=== PATIENT | female | born 1975 | race Caucasian/White ===

== ENCOUNTER 2023-12-16 17:25 | Inpatient (IN) | payer OTHER, SELFPAY ==
--- NOTE | 2023-12-16 18:12 | RAD REPORT ---
Procedure: Chest Single View HISTORY: Shortness of breath COMPARISON: 2018 FINDINGS: The lungs appear clear of acute infiltrate. No significant pleural effusion noted. The heart is normal size. IMPRESSION: No acute abnormality is displayed.
[2023-12-16] MEDS ORDERED: ALBUTEROL 2.5 MG/3 ML NEB SOL ONE ×2 (18:17→18:54)
[2023-12-16] MEDS ORDERED: MAGNESIUM SULFATE 1 gm IVPB 1 GM/100 ML BAG IV ONE (18:18)
[2023-12-16] MEDS ORDERED: IPRATROPIUM BROM 0.5MG/2.5ML ONE ×2 (18:18→18:54)
[2023-12-16] MEDS ORDERED: METHYLPREDNISOLONE 125 MG INJ ONE (18:18)
[2023-12-16] MEDS ORDERED: NA CHLORIDE 0.9% 3,000 ML ONE (18:19)
[2023-12-16 18:36] LABS: Absolute Monocytes 0.6 K/uL (0.1-1.3); Absolute Neutrophil 7.6 K/uL (1.8-8.0); Basophils % 0.4 % (0-1.3); Eosinophils % 0.4 % (0-4.4); Hematocrit 36.4 % (36.0-45.0); Hemoglobin 12.3 g/dL (12.0-15.0); Lymphocytes % 10.9 % (15.3-44.8); MCHC 33.7 g/dL (32.0-36.0); MCV 85.9 fL (80-100); MPV 6.6 fL (7.6-11.3); Monocytes % 6.1 % (3.3-12.3); Neutrophils % 82.2 % (41.7-73.7); Platelets 505 thou/uL (152-406); RBC Red Blood Cell Count 4.24 M/uL (3.86-4.86); Red Cell Distribution Width 17.3 % (12.1-15.2)
[2023-12-16 18:43] LABS: PT Prothrombin Time 11.7 SECONDS (9.4-12.5); PTT, Activated Partial Thromb 38.9 SECONDS (24.3-36.9); Protime INR 1.05
[2023-12-16 18:55] LABS: AST/SGOT 14 U/L (15-37); Albumin 3.5 g/dL (3.4-5.0); Albumin/Globulin Ratio 0.8 (1.1-1.8); Alkaline Phosphatase 59 U/L (45-117); Anion Gap 9.8 mEq/L (5.0-15.0); BUN Blood Urea Nitrogen 8 mg/dL (7-18); Bicarbonate 24 mEq/L (21-32); Bilirubin Total 0.3 mg/dL (0.2-1.0); Globulin 4.2 g/dL (2.3-3.5); Glomerular Filtration Rate 51 ml/min (=/>90); Glucose Level 115 mg/dL (74-106); Potassium 2.8 mEq/L (3.5-5.1); Protein, Total 7.7 g/dL (6.4-8.2); Sodium Level 135 mEq/L (136-145)
[2023-12-16 18:56] LABS: ALT/SGPT < 14 U/L (13-56)
[2023-12-16 19:21] LABS: SARS-CoV-2 Antigen CONTROL BLUE LINE VIS/BG OK; SARS-CoV-2 Antigen Rapid Res Negative (Negative)
--- NOTE | 2023-12-16 20:02 | ER ---
Nurse's Notes [facility] Name: Swati Garcia Age: 48 yrs Sex: Female : 1975 Arrival Date: 12/16/2023 Time: 17:25 Bed 23 Private MD: Diagnosis: Acute bronchitis, unspecified Presentation: 12/15 17:34 Chief complaint: Patient states: SOB for 3 days with wheezing. Coronavirus screen: ll1 Client denies travel out of the [place] in the last 14 days. cough unrelated to allergies, difficulty breathing, shortness of breath, Client presents with at least one sign or symptom that may indicate coronavirus-19. Standard/surgical mask placed on the client. Ebola Screen: Patient denies travel to an Ebola-affected area in the 21 days before illness onset. Initial Sepsis Screen: Does the patient meet any 2 criteria? No. Patient's initial sepsis screen is negative. Does the patient have a suspected source of infection? No. Patient's initial sepsis screen is negative. Risk Assessment: Do you want to hurt yourself or someone else? Patient reports no desire to harm self or others. Onset of symptoms was December 14, 2023. 17:34 Method Of Arrival: Ambulatory ll1 17:34 Acuity: POLLY 2 ll1 Triage Assessment: 17:43 General: Appears distressed, uncomfortable, ill, Behavior is calm, cooperative, ll1 appropriate for age. Pain: Denies pain. Respiratory: Reports shortness of breath cough that is Breath sounds with wheezes bilaterally. Onset: The symptoms/episode began/occurred the patient has moderate shortness of breath. Historical: - Allergies: 17:33 PENICILLINS; ll1 17:33 Promethazine; ll1 17:33 Iodine; ll1 17:33 NSAIDS; ll1 17:33 Rocephin; ll1 - PMHx: 17:33 Asthma; Hypertension; Lupus; ll1 - Immunization history:: Adult Immunizations up to date. - Social history:: Smoking status: Patient reports the use of cigarette tobacco products, smokes one pack cigarettes per day. Screenin:44 [facility] Fall Risk Assessment (Adult) History of falling in the last 3 months, jb4 including since admission No falls in past 3 months (0 pts) Confusion or Disorientation No (0 pts) Intoxicated or Sedated No (0 pts) Impaired Gait No (0 pts) Mobility Assist Device Used No (0 pt) Altered Elimination No (0 pt) Score/Fall Risk Level 0 - 2 = Low Risk Oriented to surroundings, Maintained a safe environment. Abuse screen: Denies threats or abuse. Nutritional screening: No deficits noted. Tuberculosis screening: No symptoms or risk factors identified. Assessment: 18:00 General: Appears in no apparent distress. uncomfortable, ill, obese, Behavior is calm, jb4 cooperative. Pain: Complains of pain in chest Pain does not radiate. Pain currently is 9 out of 10 on a pain scale. Neuro: Level of Consciousness is awake, alert, obeys commands, Oriented to person, place, time, situation. Cardiovascular: Patient's skin is warm and dry. Rhythm is sinus tachycardia. Respiratory: Airway is patent Respiratory effort is labored, pursed lip, Respiratory pattern is symmetrical, tachypnea Breath sounds with wheezes bilaterally. GI: No signs and/or symptoms were reported involving the gastrointestinal system. : No signs and/or symptoms were reported regarding the genitourinary system. EENT: No signs and/or symptoms were reported regarding the EENT system. Derm: Skin is intact, Skin is pink, warm \T\ dry. Musculoskeletal: Circulation, motion, and sensation intact. Range of motion: intact in all extremities. 19:00 Reassessment: Patient appears in no apparent distress at this time. No changes from jb4 previously documented assessment. Patient and/or family updated on plan of care and expected duration. Pain level reassessed. 20:00 Reassessment: Pt is now resting more comfortably in bed. Is no longer reporting jb4 wheezing or SOB while at rest. 21:00 Reassessment: Patient appears in no apparent distress at this time. No changes from jb4 previously documented assessment. Patient and/or family updated on plan of care and expected duration. Pain level reassessed. Pt able to ambulate to the restroom. Vital Signs: 17:34 BP 148 / 94; Pulse 129; Resp 30; Temp 98.2; Pulse Ox 98% ; Weight 102.06 kg; Height 5 ll1 ft. 1 in. ; Pain 9/10; 20:05 BP 132 / 78; Pulse 122; Resp 21; Pulse Ox 95% on R/A; jb4 20:46 BP 106 / 94; Pulse 120; Resp 23; Pulse Ox 99% on R/A; jb4 17:34 Body Mass Index 42.51 (102.06 kg, 154.94 cm) ll1 17:34 Pain Scale: Adult ll1 ED Course: 17:26 Patient arrived in ED. ra3 17:32 [facility] Potter [facility]C [facility] kb 17:32 Perry Abraham MD is Attending Physician. kb 17:35 Triage completed. ll1 17:35 Arm band placed on. ll1 17:45 Patient placed in an exam room, on a stretcher. ll1 17:57 Chest Single View XRAY In Process Unspecified. EDMS 18:06 Ricardo Martino, GERARDO is Primary Nurse. jb4 18:30 Inserted saline lock: 18 gauge in right antecubital area, using aseptic technique. jb4 20:01 Tonia Hinojosa MD is Hospitalizing Provider. kb 20:37 Strep Sent. jb4 21:44 Patient has correct armband on for positive identification. Bed in low position. Call jb4 light in reach. Side rails up X 1. Provided Education on: need for admit. 21:44 No provider procedures requiring assistance completed. Patient admitted, IV remains in jb4 place. Administered Medications: 18:22 Drug: Albuterol Inhalation 2.5 mg Inhalation once Route: Inhalation; jb4 18:22 Drug: Ipratropium Inhalation Aerosol 0.5 mg Inhalation once Route: Inhalation; jb4 18:27 Drug: NS 0.9% IV (30 ml/kg) 30 ml/kg IV at bolus once; Sepsis Protocol; to be given as jb4 a bolus over 90 minutes Route: IV; Rate: bolus; Site: left antecubital; 21:44 Follow up: Response: No adverse reaction; IV Status: Completed infusion; IV Intake: jb4 3000ml 18:27 Drug: MethylPrednisoLONE IVP 125 mg IVP once Route: IVP; Site: left antecubital; jb4 20:38 Follow up: Response: No adverse reaction; Marked relief of symptoms jb4 18:33 Drug: Magnesium Sulfate IVPB 1 grams IVPB once over 1 hrs Route: IVPB; Infused Over: 1 jb4 hrs; Site: left antecubital; 19:33 Follow up: Response: No adverse reaction; IV Status: Completed infusion; IV Intake: jb4 100ml 19:00 Drug: Albuterol Inhalation 2.5 mg Inhalation once Route: Inhalation; jb4 19:00 Drug: Ipratropium Inhalation Aerosol 0.5 mg Inhalation once Route: Inhalation; jb4 20:31 Not Given (Other Intervention Used): [id number] mg 100 ml IVPB once over 60 mins jb4 20:45 Drug: AZITHromycin IVPB 500 mg IVPB once over 1 hrs; (mix in 250 mL NS) Route: IVPB; jb4 Infused Over: 1 hrs; Site: left antecubital; 21:43 Follow up: IV Status: Infusion continued upon admission jb4 Intake: 19:33 IV: 100ml; Total: 100ml. jb4 21:44 IV: 3000ml; Total: 3100ml. jb4 Outcome: 20:01 Decision to Hospitalize by Provider. kb 21:45 Admitted to Med/surg accompanied by tech, via wheelchair, room 215, Report called to sanam Kramer RN 21:45 Condition: stable 21:45 Discharge instructions given to patient, Instructed on the need for admit, Demonstrated understanding of instructions, 21:45 Patient left the ED. jb4 Signatures: Dispatcher [employer] EDMS Gala Potter, SPORT INTERNSHIP-C SPORT INTERNSHIP-CkRicardo Zhao RN RN jb4 Adiel Dela Cruz, GERARDO RN ll1 Yanira Powell ra3 Corrections: (The following items were deleted from the chart) 17:36 17:34 Pulse 129bpm; Resp 30bpm; Pulse Ox 98%; Temp 98.2F; 102.06 kg; Height 5 ft. 1 ll1 in.; BMI: 42.5; Pain 9/10, Adult; ll1 20:39 19:38 Albuterol Inhalation 2.5 mg Inhalation jb4 jb4
--- NOTE | 2023-12-16 20:02 | EDPHYS ---
Physician Documentation [facility] Name: Swati Garcia Age: 48 yrs Sex: Female : 1975 Arrival Date: 12/16/2023 Time: 17:25 Bed 23 Private MD: ED Physician Perry Abraham HPI: 12/15 20:22 This 48 yrs old Female presents to ER via Ambulatory with complaints of Breathing kb Difficulty. 20:22 Pt is a 48 year old female who presents for cough, congestion, shortness of breath and kb fever that started 3 days ago. States symptoms have continued to progress despite otc medication. 1.5ppd smoker. Historical: - Allergies: 17:33 PENICILLINS; ll1 17:33 Promethazine; ll1 17:33 Iodine; ll1 17:33 NSAIDS; ll1 17:33 Rocephin; ll1 - PMHx: 17:33 Asthma; Hypertension; Lupus; ll1 - Immunization history:: Adult Immunizations up to date. - Social history:: Smoking status: Patient reports the use of cigarette tobacco products, smokes one pack cigarettes per day. ROS: 20:19 Constitutional: As per HPI kb Exam: 20:19 Constitutional: This is a well developed, well nourished patient who is awake, alert, kb and in no acute distress. Head/Face: Normocephalic, atraumatic. ENT: Moist Mucous membranes Abdomen/GI: Soft, non-tender. No distention Skin: Warm, dry with normal turgor. Normal color. MS/ Extremity: Pulses equal, no cyanosis. Neurovascular intact. Full, normal range of motion. Neuro: Awake and alert, GCS 15, oriented to person, place, time, and situation. 20:19 Cardiovascular: Rate: tachycardic, 20:19 ECG was reviewed by the Attending Physician. 20:19 Respiratory: mild respiratory distress is noted, Respirations: labored breathing, Breath sounds: wheezing: inspiratory expiratory that is moderate, is scattered, Vital Signs: 17:34 BP 148 / 94; Pulse 129; Resp 30; Temp 98.2; Pulse Ox 98% ; Weight 102.06 kg; Height 5 ll1 ft. 1 in. ; Pain 9/10; 20:05 BP 132 / 78; Pulse 122; Resp 21; Pulse Ox 95% on R/A; jb4 20:46 BP 106 / 94; Pulse 120; Resp 23; Pulse Ox 99% on R/A; jb4 17:34 Body Mass Index 42.51 (102.06 kg, 154.94 cm) ll1 17:34 Pain Scale: Adult ll1 MDM: 17:32 Medical Screening Exam initiated kb 20:20 Differential diagnosis: asthma, Bronchitis Chronic Obstructive Pulmonary Disease kb Pulmonary Embolism. Data reviewed: vital signs, nurses notes. Consideration of Admission/Observation Patient was admitted/placed on observation. Escalation of care including admission/observation considered. Management of patient was discussed with the following: Hospitalist: [facility] WORKER accepts pt for admission. Test considered but Not performed: CT: CT chest to rule out pe considered but pt is allergic to iodine. Counseling: I had a detailed discussion with the patient and/or guardian regarding the historical points, exam findings, and any diagnostic results supporting the discharge/admit diagnosis, lab results, radiology results, the need for further work-up and treatment in the hospital. 12/15 17:35 Order name: Blood Culture Adult (2) kb 12/15 17:35 Order name: CBC with Diff; Complete Time: 18:38 kb 12/15 17:35 Order name: CMP; Complete Time: 18:57 kb 12/15 17:35 Order name: Lactate w/ 2H reflex if indic.; Complete Time: 19:01 kb 12/15 17:35 Order name: Protime (+inr); Complete Time: 18:54 kb 12/15 17:35 Order name: Ptt, Activated; Complete Time: 18:54 kb 12/15 17:35 Order name: Flu; Complete Time: 19:25 kb 12/15 17:35 Order name: SARS-COV-2 Antigen Rapid; Complete Time: 19:25 kb 12/15 19:04 Order name: Glucose, Ancillary Testing; Complete Time: 19:04 EDMS 12/15 19:56 Order name: Strep kb 12/15 20:52 Order name: Throat Culture EDMS 12/15 20:59 Order name: Ghost Lactate-NO COLLECT Timer; Complete Time: 21:06 EDMS 12/15 21:30 Order name: Lactate w/ 2H reflex if indic. EDMS 12/15 21:30 Order name: Urinalysis w/ reflexes EDMS 12/15 21:30 Order name: CBC with Automated Diff EDMS 12/15 21:30 Order name: CBC with Automated Diff EDMS 12/15 21:30 Order name: Comprehensive Metabolic Panel EDMS 12/15 21:30 Order name: Comprehensive Metabolic Panel EDMS 12/15 21:30 Order name: Magnesium EDMS 12/15 21:30 Order name: Magnesium EDMS 12/15 17:35 Order name: Chest Single View XRAY; Complete Time: 18:31 kb 12/15 17:35 Order name: Accucheck; Complete Time: 19:10 kb 12/15 17:35 Order name: Cardiac monitoring; Complete Time: 19:10 kb 12/15 17:35 Order name: EKG - Nurse/Tech; Complete Time: 19:10 kb 12/15 17:35 Order name: IV Saline Lock - Large Bore; Complete Time: 19:10 kb 12/15 17:35 Order name: Labs collected and sent; Complete Time: 18:39 kb 12/15 17:35 Order name: O2 Per Protocol; Complete Time: 18:39 kb 12/15 17:35 Order name: O2 Sat Monitoring; Complete Time: 18:39 kb 12/15 17:35 Order name: Vital Signs; Complete Time: 18:38 kb 12/15 19:51 Order name: Vital Signs; Complete Time: 20:05 kb 12/15 21:06 Order name: Misc. Order: please draw repeat lactate; Complete Time: 21:43 kb EC:19 Rate is 120 beats/min. Rhythm is regular. QRS [place] is Normal. [place] interval is normal at kb 112 msec. QRS interval is normal at 84 msec. QT interval is prolonged at 613 msec. Administered Medications: 18:22 Drug: Albuterol Inhalation 2.5 mg Inhalation once Route: Inhalation; jb4 18:22 Drug: Ipratropium Inhalation Aerosol 0.5 mg Inhalation once Route: Inhalation; jb4 18:27 Drug: NS 0.9% IV (30 ml/kg) 30 ml/kg IV at bolus once; Sepsis Protocol; to be given as jb4 a bolus over 90 minutes Route: IV; Rate: bolus; Site: left antecubital; 21:44 Follow up: Response: No adverse reaction; IV Status: Completed infusion; IV Intake: jb4 3000ml 18:27 Drug: MethylPrednisoLONE IVP 125 mg IVP once Route: IVP; Site: left antecubital; jb4 20:38 Follow up: Response: No adverse reaction; Marked relief of symptoms jb4 18:33 Drug: Magnesium Sulfate IVPB 1 grams IVPB once over 1 hrs Route: IVPB; Infused Over: 1 jb4 hrs; Site: left antecubital; 19:33 Follow up: Response: No adverse reaction; IV Status: Completed infusion; IV Intake: jb4 100ml 19:00 Drug: Albuterol Inhalation 2.5 mg Inhalation once Route: Inhalation; jb4 19:00 Drug: Ipratropium Inhalation Aerosol 0.5 mg Inhalation once Route: Inhalation; jb4 20:31 Not Given (Other Intervention Used): [id number] mg 100 ml IVPB once over 60 mins jb4 20:45 Drug: AZITHromycin IVPB 500 mg IVPB once over 1 hrs; (mix in 250 mL NS) Route: IVPB; jb4 Infused Over: 1 hrs; Site: left antecubital; 21:43 Follow up: IV Status: Infusion continued upon admission jb4 Disposition Summary: 12/16/23 20:01 Hospitalization Ordered Notes: Hospitalization Status: Observation kb Provider: Tonia Hinojosa [facility] Condition: Stable kb Problem: new kb Symptoms: are unchanged kb Bed/Room Type: Standard Room Assignment: 215(12/16/23 20:23) rv1 Diagnosis - Acute bronchitis, unspecified kb Forms: - Medication Reconciliation Form kb - SBAR form kb - Leadership Thank You Letter kb Addendum: 12/20/2023 19:58 Co-signature as Attending Physician, Perry Abraham MD I reviewed the patient's care r t provided by the Advanced Practice Provider and agree with the diagnosis and treatment plan. Signatures: Dispatcher [employer] EDTN Gala Potter, BATCH AND FURNACE MANAGER-C BATCH AND FURNACE MANAGER-Ckb Ricardo Martino RN RN jb4 Adiel Dela Cruz RN RN ll1 Perry Abraham MD MD Claudette Haynes rv1 Corrections: (The following items were deleted from the chart) 12/15 17:36 17:36 BLOOD CULTURE*+BA.LAB.BRZ ordered. EDMS EDMS 17:36 17:36 CBC+H.LAB.BRZ ordered. EDMS EDMS 17:36 17:36 COMPREHENSIVE METABOLIC PANEL+C.LAB.BRZ ordered. EDMS EDMS 17:36 17:36 LACTATE+C.LAB.BRZ ordered. EDMS EDMS 17:36 17:36 PROTIME (+INR)+COAG.LAB.BRZ ordered. EDMS EDMS 17:36 17:36 PTT, ACTIVATED+COAG.LAB.BRZ ordered. EDMS EDMS 17:36 17:36 Influenza Screen (A \T\ B)+BA.LAB.BRZ ordered. EDMS EDMS 17:36 17:36 SARS-COV-2 Antigen Rapid+I.LAB.BRZ ordered. EDMS EDMS 17:36 17:36 Chest Single View+RAD.RAD.BRZ ordered. EDMS EDMS 20:23 20:01 kb rv1
[2023-12-16] MEDS ORDERED: Levofloxacin500mg IV 0 MG/0 ML BAG IV ONE (20:26)
[2023-12-16] MEDS ORDERED: NA CHLORIDE 0.9% 250 ML ONE (20:29)
[2023-12-16] MEDS ORDERED: AZITHROMYCIN 500 MG INJ IVPB ONE (20:29)
--- NOTE | 2023-12-16 21:22 | P.HP ---
Certification for Inpatient Patient admitted to: Inpatient With expected LOS: <2 Midnights Practitioner: I am a practitioner with admitting privileges, knowledge of patient current condition, hospital course, and medical plan of care. Services: Services provided to patient in accordance with Admission requirements found in Title 42 Section 412.3 of the Code of Federal Regulations Patient History Date of Service: 12/17/23 Reason for admission: Asthma exacerbation History of Present Illness: 48-year-old female with a past medical history of lupus, asthma, hypertension, hyperlipidemia, presents to the emergency room with shortness of breath. He reports shortness of breath is worse with exertion, worse while laying flat. She reports symptoms started 3 days ago is progressively getting worse. She reports smoking a pack and a half a day. She denies chest pain, abdominal pain, dizziness, she denies previously being intubated for acute bronchitis, asthma exacerbation. Plan to admit for asthma exacerbation, acute hypoxic respiratory failure secondary to asthma exacerbation, ER evaluation Rate is 120 beats/min. Rhythm is regular. QRS [place] is Normal. [place] interval is normal at 112 msec. QRS interval is normal at 84 msec. QT interval is prolonged at 613 msec. Laboratory evaluation, lactic acidosis 3.0, no leukocytosis, left shift 82.2, thrombocytosis, platelets 505, hypokalemia 2.8, acute kidney injury, creatinine 1.25 GFR 51, SARS Cov, No acute abnormality is displayed. Allergies iodine Allergy (Severe, Unverified 12/16/23 22:17) Hives/Rash ceftriaxone [From Rocephin] Allergy (Intermediate, Verified 12/16/23 22:17) Nausea/Vomiting promethazine [From Phenergan] Allergy (Intermediate, Unverified 12/16/23 22:17) Hives/Rash Penicillins Allergy (Unknown, Unverified 12/16/23 22:17) Unknown NSAIDS Allergy (Intermediate, Uncoded 12/16/23 22:17) Itching/Hives/Rash Home Medications: Cyclobenzaprine [Flexeril] 10 mg PO TIDP PRN 12/16/23 Furosemide [Lasix] 20 mg PO DAILYPRN PRN 12/16/23 Gabapentin [Gabapentin ER] 600 mg PO TIDP PRN 12/16/23 Losartan Potassium [Cozaar] 50 mg PO DAILY 12/16/23 Quetiapine Fumarate [Seroquel] 400 mg PO BEDTIME 12/16/23 Trazodone [Desyrel] 300 mg PO BEDTIME 12/16/23 hydroCHLOROthiazide [Hydrodiuril] 25 mg PO DAILY 12/16/23 - Past Medical/Surgical History -: Asthma -: Hypertension -: Hyperlipidemia -: Appendectomy -: Tonsillectomy - Social History Smoking Status: Current some day smoker Smoking therapy provided: Yes CD- Drugs: No Caffeine use: No Place of Residence: Home Review of Systems 10-point ROS is otherwise unremarkable General: As per HPI Physical Examination - Physical Exam General: Alert, Oriented x3, Mild distress, Obese HEENT: Atraumatic, Normocephalic Neck: Supple, JVD not distended Respiratory: Expiratory wheezes, Inspiratory wheezes Cardiovascular: Normal pulses, Normal S1 S2, Other (Sinus tachycardia) Capillary refill: <2 Seconds Gastrointestinal: Normal bowel sounds, Soft and benign, Other (Obese) Musculoskeletal: No swelling, No contractures Integumentary: No breakdown, No significant lesion Neurological: Normal speech, Normal strength at 5/5 x4 extr, Sensation intact - Studies Laboratory Data (last 24 hrs) 12/16/23 12/16/23 12/16/23 18:27 18:27 18:27 WBC 9.30 Hgb 12.3 Hct 36.4 Plt Count 505 H PT 11.7 INR 1.05 APTT 38.9 H Sodium 135 L Potassium 2.8 L BUN 8 Creatinine 1.28 H Glucose 115 H Total Bilirubin 0.3 AST 14 L ALT < 14 Alkaline Phosphatase 59 Microbiology Data (last 24 hrs): 12/16/23 20:30 Throat Group A Streptococcus Rapid Screen - Final 12/16/23 18:45 Nasopharnyx Influenza Type A Antigen Screen - Final 12/16/23 18:45 Nasopharnyx Influenza Type B Antigen Screen - Final Assessment and Plan - Plan Assessment plan Asthma exacerbation Chronic bronchitis Tobacco use Pulmonary consult Steroids, nebs, antacids, O2 keep sats greater than 90% ER evaluation Rate is 120 beats/min. Rhythm is regular. QRS [place] is Normal. MT interval is normal at 112 msec. QRS interval is normal at 84 msec. QT interval is prolonged at 613 msec. Laboratory evaluation, lactic acidosis 3.0, no leukocytosis, left shift 82.2, thrombocytosis, platelets 505, hypokalemia 2.8, acute kidney injury, creatinine 1.25 GFR 51, chest x-ray, No acute abnormality is displayed. Educated on tobacco cessation IV fluids, trend lactic, trend WBC SIRS Sinus tachycardia, tachypnea, lactic acidosis Likely secondary from asthma exacerbation, IV fluids, IV antibiotic BNP in the a.m. Trend lactic, WBC EKG Rate is 120 beats/min. Rhythm is regular. QRS [place] is Normal. MT interval is normal at 112 msec. QRS interval is normal at 84 msec. QT interval is prolonged at 613 msec. Hypokalemia Trend electrolytes replace as needed Acute kidney injury unknown based Gentle IV fluids Thrombocytosis Lovenox lupus hypertension hyperlipidemia Resume appropriate home meds Full code DVT Lovenox Diet regular Disposition Home independent prior Discharge Plan: Home - Advance Directives Does patient have a Living Will: No Does patient have a Durable POA for Healthcare: No - Code Status/Comfort Care Code Status: Full Code Critical Care: No Time Spent Managing Pts Care (In Minutes): 55
[2023-12-16] MEDS ORDERED: ALPRAZOLAM 0.25 MG TABLET PO PRN (21:23)
[2023-12-16 21:55] VITALS: BMI 39.8
[2023-12-16] MEDS: TRAZODONE 150 MG TAB PO SCH (23:53)
[2023-12-17] MEDS: QUETIAPINE 100MG TAB PO SCH (00:41)
[2023-12-17] MEDS: ACETAMINOPHEN 500 MG TAB PO PRN (00:41)
[2023-12-17] MEDS: NICOTINE 21 MG/PAT TD SCH (00:42)
[2023-12-17] MEDS: METHYLPREDNISOLONE 125 MG INJ IV SCH (00:42)
[2023-12-17] MEDS: ALBUTEROL 2.5 MG/3 ML NEB SOL NEB PRN (01:29)
[2023-12-17] MEDS: IPRATROPIUM BROM 0.5MG/2.5ML NEB PRN (01:29)
[2023-12-17 05:23] LABS: Absolute Lymphocytes (CBC) 0.7 K/uL (0.7-4.9); Absolute Monocytes 0.1 K/uL (0.1-1.3); Absolute Neutrophil 7.8 K/uL (1.8-8.0); Basophils % 0.1 % (0-1.3); Hematocrit 33.7 % (36.0-45.0); Hemoglobin 11.1 g/dL (12.0-15.0); Lymphocytes % 8.4 % (15.3-44.8); MCH 28.3 pg (27.0-35.0); MCHC 32.9 g/dL (32.0-36.0); MCV 86.2 fL (80-100); MPV 6.5 fL (7.6-11.3); Monocytes % 1.7 % (3.3-12.3); Neutrophils % 89.8 % (41.7-73.7); Platelets 442 thou/uL (152-406); RBC Red Blood Cell Count 3.91 M/uL (3.86-4.86); Red Cell Distribution Width 17.3 % (12.1-15.2)
[2023-12-17] MEDS: KCL 20 MEQ/100 mL IVPB 20 MEQ/100 ML BAG IV SCH (05:48)
[2023-12-17] MEDS: NA CHLORIDE 0.9% 500 ML ONE (05:48)
[2023-12-17 05:54] LABS: AST/SGOT 14 U/L (15-37); Albumin/Globulin Ratio 0.8 (1.1-1.8); Alkaline Phosphatase 51 U/L (45-117); BUN Blood Urea Nitrogen 6 mg/dL (7-18); Bicarbonate 23 mEq/L (21-32); Bilirubin Total 0.2 mg/dL (0.2-1.0); Globulin 3.7 g/dL (2.3-3.5); Glomerular Filtration Rate 60 ml/min (=/>90); Glucose Level 224 mg/dL (74-106); Magnesium 2.3 mg/dL (1.6-2.4); NT PRO-BNP 479 pg/mL (<125); Protein, Total 6.7 g/dL (6.4-8.2); Sodium Level 139 mEq/L (136-145)
[2023-12-17 05:55] LABS: ALT/SGPT < 14 U/L (13-56)
[2023-12-17] MEDS: CALCIUM CARBONATE CHEW 500MG TAB PO PRN (05:56)
[2023-12-17] MEDS: BENZONATATE 100 MG CAP PO PRN (05:57)
[2023-12-17] MEDS: ARFORMOTEROL TARTRATE 15 MCG/2 ML VIAL.NEB NEB SCH (07:53)
[2023-12-17] MEDS: POTASSIUM 25 MEQ EFFERV TAB PO SCH (08:06)
[2023-12-17] MEDS: ENOXAPARIN 40 MG/0.4 ML SQ SCH (08:07)
[2023-12-17 08:32] VITALS: O2SAT 96
[2023-12-17] MEDS ORDERED: AZITHROMYCIN IV 500 MG in NA CHLORIDE 0.9% 250 ML IVPB SCH (09:00)
[2023-12-17 09:34] LABS: Specific Gravity 1.008 (1.005-1.030); Sqamous Epithelial <5 /HPF (None Seen); Urine Bacteria None Seen /HPF (<20); Urine Bilirubin NEGATIVE (Negative); Urine Blood 1+ (Negative); Urine Clarity Clear (Clear); Urine Color Colorless (Yellow); Urine Culture Reflex Order NOT NEEDED; Urine Glucose 3+ (Negative); Urine Ketones NEGATIVE (Negative); Urine Microscopic Reflex YN ORDER UMIC; Urine Nitrite NEGATIVE (Negative); Urine Protein NEGATIVE (Negative); Urine RBC <5 /HPF (None Seen); Urine Urobilinogen Normal (Normal); Urine WBC <5 /HPF (<5); Urine pH 6.5 (5.0-7.0)
[2023-12-17 09:52] LABS: Blood Morphology Comment NOT SEEN (NOT SEEN); Platelet Estimate ADEQ; White Blood Cell Scan OK (OK)
[2023-12-17] MEDS: Levofloxacin 750mg IV 750 MG/150 ML BAG IV SCH (09:53)
[2023-12-17] MEDS: FLU (Fluarix Triv) TS24-25(6MOS UP)/PF 45 MCG/0.5 ML Syringe IM ONE (10:43)
[2023-12-17] MEDS: PANTOPRAZOLE 40MG TABLET PO ONE (11:39)
--- NOTE | 2023-12-17 11:48 | P.CNS ---
Date of Consult: 12/17/23 Reason for Consult: COPD/asthma exacerbation Chief Complaint: Asthma exacerbation History of Present Illness: Is 48 years of age says she has had a history of asthma since a kid heavy smoker 1-1/2 packs a day became sick 3 days ago planing of worse cough congestion productive phlegm admitted to the hospital she only takes albuterol at home use any long-acting bronchodilators patient states that steroids upset her stomach and she is okay if she takes a Pepcid with it denies any swelling lower extremity edema Allergies iodine Allergy (Severe, Verified 12/17/23 08:06) Hives/Rash ceftriaxone [From Rocephin] Allergy (Intermediate, Verified 12/16/23 22:17) Nausea/Vomiting promethazine [From Phenergan] Allergy (Intermediate, Verified 12/17/23 08:06) Hives/Rash Penicillins Allergy (Unknown, Verified 12/17/23 08:06) Unknown NSAIDS Allergy (Intermediate, Uncoded 12/16/23 22:17) Itching/Hives/Rash Home Medications: Cyclobenzaprine [Flexeril] 10 mg PO TIDP PRN 12/16/23 Furosemide [Lasix] 20 mg PO DAILYPRN PRN 12/16/23 Gabapentin [Gabapentin ER] 600 mg PO TIDP PRN 12/16/23 Losartan Potassium [Cozaar] 50 mg PO DAILY 12/16/23 Quetiapine Fumarate [Seroquel] 400 mg PO BEDTIME 12/16/23 Trazodone [Desyrel] 300 mg PO BEDTIME 12/16/23 hydroCHLOROthiazide [Hydrodiuril] 25 mg PO DAILY 12/16/23 - Past Medical/Surgical History Diabetic: No -: Asthma -: Hypertension -: Hyperlipidemia -: bipolar -: urinary retention -: Appendectomy -: Tonsillectomy -: - Social History Smoking Status: Current every day smoker Alcohol use: No CD- Drugs: No Caffeine use: No Place of Residence: Home Review of Systems 10-point ROS is otherwise unremarkable General: Weakness Respiratory: Cough, Shortness of Breath Physical Examination Temp Pulse Resp BP Pulse Ox 97.6 F 106 H 16 130/72 95 12/17/23 08:00 12/17/23 08:00 12/17/23 08:00 12/17/23 08:00 12/17/23 08:00 General: Alert, Oriented x3, Mild distress Neck: Supple Respiratory: Expiratory wheezes Cardiovascular: No edema, Regular rate/rhythm, Normal S1 S2 Gastrointestinal: Normal bowel sounds, Soft and benign Laboratory Data (last 24 hrs) 12/16/23 12/16/23 12/16/23 18:27 18:27 18:27 WBC 9.30 Hgb 12.3 Hct 36.4 Plt Count 505 H PT 11.7 INR 1.05 APTT 38.9 H Sodium 135 L Potassium 2.8 L BUN 8 Creatinine 1.28 H Glucose 115 H Total Bilirubin 0.3 AST 14 L ALT < 14 Alkaline Phosphatase 59 - Problems (1) COPD exacerbation Current Visit: Yes Status: Acute Plan: Patient is 48 years of age heavy smoker history of obstructive airways disease since childhood with worsening dyspnea cough congestion to be intolerant to steroids causes her stomach upset x-ray is clear labs chemistries all reviewed no evidence of an infection to discharge home with low-dose prednisone Pepcid and long-acting bronchodilator to follow-up with me and do an outpatient pulmonary function test to continue use using Dulera at home again smoking
--- NOTE | 2023-12-17 12:00 | P.PN ---
Date of Service: 12/17/23 Subjective: feels some improvement compared to yesterday still wheezing quite a bit, frequent coughing dyspnea having heartburn ROS: 10 point ROS as noted above, otherwise negative Physical Exam: GEN: Alert, NAD, restless HEENT: Normal conjunctiva, sclera anicteric CV: Regular rate and rhythm with itnermittent sinus tachycardia, no edema Pulm: diminished breath sounds bilaterally with exppiratory wheezing ABD: soft, nontender, nondistended Integumentary: No rashes Neuro: Normal speech, normal affect Problem List: Acute on chronic COPD exacerbation Hx Asthma / tobacco use Lactic acidosis BR[place] Hx lupus Hypertension Hyperlipidemia Acute on chronic COPD exacerbation Hx Asthma / tobacco use Lactic acidosis on admission, presents with worsening shortness of breath for ~3 days. Feels breathing is worse with exertion and laying flat Smokes 1.5 packs/day. Only uses albuterol at home. CXR (12/15): no acute findings. suspect COPD exacerbation Lactic acid elevated. No evidence of infection. do not suspect sepsis lactic acidosis likely secondary to copd exacerbation /hypoxia, and possibly from albuterol nebs Dr. Ruvalcaba, pulm consulted continue oral prednisone reports upset stomach after taking steroids; tolerable after taking pepcid continue duonebs, antitussives, brovana nicoderm patch added BR[place] creatinine 1.28 on admission s/p IVF overnight continue to monitor renal function monitor and replete electrolytes as needed improving Hx lupus Hypertension Hyperlipidemia confirm home meds, restart as appropriate VTE: Lovenox Code: Full Dispo: Home, ~1 day Time Spent Managing Pts Care (In Minutes): 41
[2023-12-17] MEDS: AZITHROMYCIN 250 MG TAB PO SCH (12:43)
--- NOTE | 2023-12-17 12:50 | EKG ---
Test Date: 2023-12-16 Test Time: 19:00:51 Photographic Spotter: DAYO MEASUREMENT RESULTS: Intervals: Rate: 120 [place]: 112 QRSD: 84 QT: 434 QTc: 613 [place]: P: [place]: 112 QRS: 78 T: 73 INTERPRETIVE STATEMENTS: Sinus tachycardia Low voltage QRS Cannot rule out Anterior infarct, age undetermined Prolonged QT Abnormal ECG No previous ECG available for comparison Electronically Signed On 12-17-23 12:48:55 CDT by Mika Orourke
[2023-12-17] MEDS: PANTOPRAZOLE 40MG TABLET PO SCH (15:20)
[2023-12-17] MEDS: METOCLOPRAMIDE 10 MG/2mL INJ IV SCH (16:20)
[2023-12-17] MEDS: DULERA 200/5 (MOMETASONE/FORMOTEROL) INHALER IH SCH (20:13)
[2023-12-17] MEDS: predniSONE 20 MG TAB PO SCH (20:15)
[2023-12-17] MEDS ORDERED: predniSONE 20 MG TAB PO SCH (21:00)
[2023-12-18 06:09] LABS: Absolute Lymphocytes (CBC) 1.7 K/uL (0.7-4.9); Absolute Monocytes 1.1 K/uL (0.1-1.3); Absolute Neutrophil 11.3 K/uL (1.8-8.0); Hematocrit 32.5 % (36.0-45.0); Hemoglobin 10.6 g/dL (12.0-15.0); Lymphocytes % 11.9 % (15.3-44.8); MCH 28.5 pg (27.0-35.0); MCHC 32.7 g/dL (32.0-36.0); MCV 87.2 fL (80-100); MPV 6.8 fL (7.6-11.3); Monocytes % 7.8 % (3.3-12.3); Neutrophils % 80.3 % (41.7-73.7); Platelets 423 thou/uL (152-406); RBC Red Blood Cell Count 3.73 M/uL (3.86-4.86); Red Cell Distribution Width 17.8 % (12.1-15.2)
[2023-12-18 06:32] LABS: Anion Gap 9.7 mEq/L (5.0-15.0); Magnesium 2.3 mg/dL (1.6-2.4); Potassium 3.7 mEq/L (3.5-5.1)
--- NOTE | 2023-12-18 08:41 | P.DS ---
Admission Date: 12/16/23 Discharge Date: 12/18/23 Disposition: ROUTINE DISCHARGE Discharge Condition: GOOD Reason for Admission: Asthma exacerbation Consultations: Pulmonology - Dr. Ruvalcaba Brief History of Present Illness: 48yo F, PMH: lupus, asthma, hypertension, hyperlipidemia Patient presents to the emergency room with shortness of breath. He reports shortness of breath is worse with exertion, worse while laying flat. She reports symptoms started 3 days ago is progressively getting worse. She reports smoking a pack and a half a day. She denies chest pain, abdominal pain, dizziness, she denies previously being intubated for acute bronchitis, asthma exacerbation. Plan to admit for asthma exacerbation, acute hypoxic respiratory failure secondary to asthma exacerbation, ER evaluation Rate is 120 beats/min. Rhythm is regular. QRS [place] is Normal. [place] interval is normal at 112 msec. QRS interval is normal at 84 msec. QT interval is prolonged at 613 msec. Laboratory evaluation, lactic acidosis 3.0, no leukocytosis, left shift 82.2, thrombocytosis, platelets 505, hypokalemia 2.8, acute kidney injury, creatinine 1.25 GFR 51, SARS Cov, No acute abnormality is displayed. Hospital Course: Problem List: Acute on chronic COPD exacerbation Hx Asthma / tobacco use Lactic acidosis secondary to COPD / hypoxia [place], resolved Hx lupus Hypertension Hyperlipidemia Physician discharge instructions: Patient presented with worsening shortness of breath secondary to acute on chronic COPD exacerbation. Chest xray on admission was negative for any acute findings. Pulm was consulted. Dr. Ruvalcaba felt this episode to be most consistent with acute COPD exacerbation. Patient was given steroids in addition to nebs, antitussives, and had improvement of her symptoms. Lactic acid was noted to be elevated this hospitalization ranging in the 3s. There was no evidence of infection. Discussed with Dr. Ruvalcaba and likely secondary to her COPD exacerbation and nebulizers. Lacid acid improved to 2.9 on day of discharge. She was empirically covered for possible infection while hospitalized and is to complete 5 more days of Augmentin on discharge. Patient reported continued daily improvement. On day of discharge, she reported feeling much better and ready to go home. On exam, she breathing comfortably on room air with minimal wheeze, and was deemed stable for discharge. Recommend following up with pulmonology in next week for further management and scheduling for outpatient pulmonary function testing. Medications: Augmentin for 5 more days Prednisone for 4 more days Dulera inhaler Albuterol nebs prescription for nebulizer sent. Pantoprazole continue other home medications not listed as previously prescribed. Follow up: PCP 3-5 days Pulmonology in ~1-2 weeks Please call to schedule / confirm appointments Physical Exam: GEN: Alert, NAD, restless HEENT: Normal conjunctiva, sclera anicteric CV: Regular rate and rhythm, no edema Pulm:adequate breath sounds bilaterally with mild expiratory wheezing ABD: soft, nontender, nondistended Integumentary: No rashes Neuro: Normal speech, normal affect Vital Signs/Physical Exam: Temp Pulse Resp BP Pulse Ox 98.1 F 93 H 18 136/62 95 12/18/23 04:00 12/18/23 04:00 12/18/23 04:00 12/18/23 04:00 12/18/23 04:00 Laboratory Data at Discharge: WBC 14.00 thou/uL (4.3-10.9) H 12/18/23 05:49 Hgb 10.6 g/dL (12.0-15.0) L 12/18/23 05:49 Hct 32.5 % (36.0-45.0) L 12/18/23 05:49 Plt Count 423 thou/uL (152-406) H 12/18/23 05:49 PT 11.7 SECONDS (9.4-12.5) 12/16/23 18:27 INR 1.05 12/16/23 18:27 APTT 38.9 SECONDS (24.3-36.9) H 12/16/23 18:27 Sodium 140 mEq/L (136-145) 12/18/23 05:49 Potassium 3.7 mEq/L (3.5-5.1) D 12/18/23 05:49 BUN 12 mg/dL (7-18) 12/18/23 05:49 Creatinine 1.13 mg/dL (0.55-1.02) H 12/18/23 05:49 Glucose 193 mg/dL (74-106) H 12/18/23 05:49 Magnesium 2.3 mg/dL (1.6-2.4) 12/18/23 05:49 Total Bilirubin 0.2 mg/dL (0.2-1.0) 12/17/23 05:14 AST 14 U/L (15-37) L 12/17/23 05:14 ALT < 14 U/L (13-56) 12/17/23 05:14 Alkaline Phosphatase 51 U/L (45-117) 12/17/23 05:14 Home Medications: Cyclobenzaprine [Flexeril*] 10 mg PO TIDP PRN 12/16/23 Furosemide [Lasix*] 20 mg PO DAILYPRN PRN 12/16/23 Gabapentin [Gabapentin ER] 600 mg PO TIDP PRN 12/16/23 Losartan Potassium [Cozaar*] 50 mg PO DAILY 12/16/23 Quetiapine Fumarate [Seroquel] 400 mg PO BEDTIME 12/16/23 Trazodone [Desyrel*] 300 mg PO BEDTIME 12/16/23 hydroCHLOROthiazide [Hydrodiuril*] 25 mg PO DAILY 12/16/23 Albuterol Neb [Proventil 0.083% Neb Soln] 2.5 mg NEB Q6HP PRN 30 Days #90 amp 12/18/23 Amox/Clavulanate [Augmentin 875-125 Tab] 875 mg PO BID 5 Days #10 tab 12/18/23 Mometasone/Formoterol [Dulera 200 Mcg/5 Mcg Inhaler] 2 puff IH BID inhaler 12/18/23 Nebulizer [Truneb Nebulizer] 1 each SEECOM #1 ea 12/18/23 Pantoprazole [Protonix Tab*] 40 mg PO AC 30 Days #30 tab 12/18/23 predniSONE [Prednisone*] 20 mg PO BIDL 4 Days #8 tab 12/18/23 New Medications: Albuterol Neb [Proventil 0.083% Neb Soln] 2.5 mg NEB Q6HP PRN 30 Days #90 amp PRN Reason: Shortness Of Breath Amox/Clavulanate [Augmentin 875-125 Tab] 875 mg PO BID 5 Days #10 tab predniSONE [Prednisone*] 20 mg PO BIDL 4 Days #8 tab Pantoprazole [Protonix Tab*] 40 mg PO AC 30 Days #30 tab Nebulizer [Truneb Nebulizer] 1 each SEECOM #1 ea Physician Discharge Instructions: Physician discharge instructions: Patient presented with worsening shortness of breath secondary to acute on chronic COPD exacerbation. Chest xray on admission was negative for any acute findings. Pulm was consulted. Dr. Ruvalcaba felt this episode to be most consistent with acute COPD exacerbation. Patient was given steroids in addition to nebs, antitussives, and had improvement of her symptoms. Lactic acid was noted to be elevated this hospitalization ranging in the 3s. There was no evidence of infection. Discussed with Dr. Ruvalcaba and likely secondary to her COPD exacerbation and nebulizers. She was empirically covered for possible infection while hospitalized and is to complete 5 more days of Augmentin on discharge. Patient reported continued daily improvement. On day of discharge, she reported feeling much better and ready to go home. On exam, she breathing comfortably on room air with minimal wheeze, and was deemed stable for discharge. Recommend following up with pulmonology in next week for further management and scheduling for outpatient pulmonary function testing. Medications: Augmentin for 5 more days Prednisone for 4 more days Dulera inhaler Albuterol nebs prescription for nebulizer sent. Pantoprazole continue other home medications not listed as previously prescribed. Follow up: PCP 3-5 days Pulmonology in ~1-2 weeks Please call to schedule / confirm appointments Followup: Issac Ruvalcaba MD [ACTIVE - CAN ADMIT] - 1-2 Weeks OOT,OOT [Primary Care Provider] - Time spent managing pt's care (in minutes): 45
[2023-12-18 08:49] VITALS: BP 106/75; TEMP 97.8
[2023-12-18] MEDS: POTASSIUM CL SA 10 MEQ TAB PO ONE (08:57)
[2023-12-18] MEDS ORDERED: Levofloxacin 750mg IV 750 MG/150 ML BAG IV SCH (10:00)
== END 2023-12-18 10:11 | disposition home or self-care (01) | DRG 190 ==
LOC: ER 17:25 → 2ND 21:22
PROVIDERS: ADMIT Hospitalist; ATTEND Hospitalist
DX: J44.1 Chronic obstructive pulmonary disease with (acute) exacerbation (principal); J96.01 Acute respiratory failure with hypoxia; E87.20 Acidosis, unspecified; N17.9 Acute kidney failure, unspecified; Z68.41 Body mass index [BMI] 40.0-44.9, adult; R65.10 Systemic inflammatory response syndrome (SIRS) of non-infectious origin without acute organ dysfunction; E66.9 Obesity, unspecified; E87.6 Hypokalemia; I10 Essential (primary) hypertension; E78.5 Hyperlipidemia, unspecified; M32.9 Systemic lupus erythematosus, unspecified; D69.6 Thrombocytopenia, unspecified; F17.210 Nicotine dependence, cigarettes, uncomplicated; Z88.0 Allergy status to penicillin; Z88.1 Allergy status to other antibiotic agents; Z11.52 Encounter for screening for COVID-19; Z90.49 Acquired absence of other specified parts of digestive tract; Z79.899 Other long term (current) drug therapy
CPT/HCPCS: 36415; 71045; 80048; 80053; 81001; 82947; 83605; 83735; 83880; 85025; 85610; 85730; 87040; 87070; 87081; 87804; 87811; 93005; 94640; 94760; 96365; 96367; 96375; 99285; J1650; J2765; J2919; J3475; J3480; J3535; J7030; J7040; J7050; J7512; J7605; J7613; J7644

== ENCOUNTER 2024-04-05 07:34 | Emergency (ER) | payer OTHER ==
[2024-04-05] MEDS ORDERED: NA CHLORIDE 0.9% 1,000 ML ONE (07:51)
[2024-04-05] MEDS ORDERED: FAMOTIDINE 20 MG/2 ML VIAL IV ONE (07:51)
[2024-04-05 08:05] LABS: Absolute Lymphocytes (CBC) 0.9 K/uL (0.7-4.9); Absolute Monocytes 0.3 K/uL (0.1-1.3); Absolute Neutrophil 8.1 K/uL (1.8-8.0); Basophils % 0.3 % (0-1.3); Eosinophils % 0.1 % (0-4.4); Hematocrit 39.3 % (36.0-45.0); Lymphocytes % 9.4 % (15.3-44.8); MCH 28.2 pg (27.0-35.0); MCHC 33.1 g/dL (32.0-36.0); MCV 85.3 fL (80-100); MPV 6.5 fL (7.6-11.3); Monocytes % 3.3 % (3.3-12.3); Neutrophils % 86.9 % (41.7-73.7); Platelets 506 thou/uL (152-406); RBC Red Blood Cell Count 4.61 M/uL (3.86-4.86); Red Cell Distribution Width 17.3 % (12.1-15.2)
[2024-04-05 08:25] LABS: Albumin 3.5 g/dL (3.4-5.0); Albumin/Globulin Ratio 0.8 (1.1-1.8); Alkaline Phosphatase 59 U/L (45-117); Anion Gap 9.5 mEq/L (5.0-15.0); BUN Blood Urea Nitrogen 11 mg/dL (7-18); Bicarbonate 26 mEq/L (21-32); Bilirubin Total 0.3 mg/dL (0.2-1.0); Globulin 4.2 g/dL (2.3-3.5); Glomerular Filtration Rate 58 ml/min (=/>90); Glucose Level 138 mg/dL (74-106); Lipase 21 U/L (13-75); Protein, Total 7.7 g/dL (6.4-8.2); Sodium Level 136 mEq/L (136-145)
[2024-04-05 08:30] LABS: ALT/SGPT < 14 U/L (13-56); AST/SGOT 15 U/L (15-37); Potassium 4.5 mEq/L (3.5-5.1)
[2024-04-05 08:40] LABS: Blood Morphology Comment NOT SEEN (NOT SEEN); White Blood Cell Scan OK (OK)
[2024-04-05 08:41] LABS: Platelet Estimate INCR
[2024-04-05 09:55] LABS: Specific Gravity 1.008 (1.005-1.030); Sqamous Epithelial <5 /HPF (None Seen); Urine Bacteria <20 /HPF (<20); Urine Bilirubin NEGATIVE (Negative); Urine Blood Trace (Negative); Urine Clarity Extremely Turbid (Clear); Urine Color Light-Yellow (Yellow); Urine Culture Reflex Order NOT NEEDED; Urine Glucose NEGATIVE (Negative); Urine Ketones NEGATIVE (Negative); Urine Microscopic Reflex YN ORDER UMIC; Urine Mucus Slight /HPF (None Seen); Urine Nitrite NEGATIVE (Negative); Urine Protein NEGATIVE (Negative); Urine RBC <5 /HPF (None Seen); Urine Urobilinogen Normal (Normal); Urine WBC <5 /HPF (<5); Urine pH 6.5 (5.0-7.0)
[2024-04-05 09:58] LABS: Barbiturates NEGATIVE (NEGATIVE); Benzodiazepines NEGATIVE (NEGATIVE); Cocaine NEGATIVE (NEGATIVE); METHAMPHETAM NEGATIVE (NEGATIVE); Methadone NEGATIVE (NEGATIVE); Opiates NEGATIVE (NEGATIVE); Phencyclidine NEGATIVE (NEGATIVE); THC Cannibis NEGATIVE (NEGATIVE)
--- NOTE | 2024-04-05 09:59 | EDPHYS ---
Physician Documentation [facility] Name: Swati Garcia Age: 48 yrs Sex: Female : 1975 Arrival Date: 04/05/2024 Time: 07:34 Bed 8 Private MD: ED Physician Aniceto Melgoza HPI: 04/05 08:11 This 48 yrs old Female presents to ER via EMS with complaints of Drug Abuse. rn 08:11 The patient presents to the emergency department with a possible overdose. Context: rn Method: the patient has a confirmed or suspected ingestion. Severity of symptoms: At their worst the symptoms were moderate in the emergency department the symptoms have improved. The patient has not experienced similar symptoms in the past. Patient reports her and jessica took a THC gummy yesterday, both of them began to feel bad shortly afterwards and through the night. Called 911 because they were not feeling well, patient reports she started throwing up. Patient reports mild abdominal cramping. No trauma. Patient states felt okay prior to taking gummy.. Historical: - Allergies: 07:44 Iodine; ss 07:44 NSAIDS; ss 07:44 PENICILLINS; ss 07:44 Phenergan; ss 07:44 Rocephin; ss - PMHx: 07:44 Asthma; Hypertension; Lupus; ss - Immunization history:: Adult Immunizations unknown. - Infectious Disease History:: Denies. - Family history:: not pertinent. - Social history:: Smoking status: unknown Patient uses street drugs, marijuana. - Hospitalizations: : No recent hospitalization is reported. ROS: 08:11 Constitutional: Negative for fever, chills, and weight loss, Cardiovascular: Negative rn for chest pain, palpitations, and edema, Respiratory: Negative for shortness of breath, cough, wheezing, and pleuritic chest pain, Abdomen/GI: Positive for mild lower abdominal cramping, positive for vomiting, negative for diarrhea : Negative for injury, bleeding, discharge, and swelling, MS/Extremity: Negative for injury and deformity, Skin: Negative for injury, rash, and discoloration, Neuro: Negative for headache, weakness, numbness, tingling, and seizure, Exam: 08:11 Constitutional: This is a well developed, well nourished patient who is awake, alert, rn and in no acute distress. Spitting up into emesis bag Head/Face: Normocephalic, atraumatic. ENT: Dry mucous membranes Neck: No meningismus Cardiovascular: Tachycardic, regular Respiratory: No increased work of breathing, no retractions or nasal flaring. Abdomen/GI: Soft, non-tender MS/ Extremity: Pulses equal, no cyanosis. Neurovascular intact. Neuro: Awake and alert, GCS 15, oriented to person, place, time, and situation. Cranial nerves II-XII grossly intact. Motor strength 5/5 in all extremities. Sensory grossly intact. Cerebellar exam normal. 08:45 ECG was reviewed by the Attending Physician. rn Vital Signs: 07:40 Pulse 104; Resp 16; Temp 99.1(O); Pulse Ox 100% on R/A; Weight 90.72 kg; Height 5 ft. 0 ss in. ; Pain 0/10; 07:56 BP 139 / 87; ph 09:09 BP 131 / 82; Pulse 82; Resp 18; Pulse Ox 99% on R/A; ph 10:30 BP 127 / 86; Pulse 78; Resp 18; Temp 97.9; Pulse Ox 98% on R/A; ph 07:40 Body Mass Index 39.06 (90.72 kg, 152.4 cm) ss 07:40 Pain Scale: Adult ss MDM: 07:36 Medical Screening Exam initiated rn 09:56 Differential diagnosis: Ingestion/exposure to THC. Data reviewed: vital signs, nurses rn notes, lab test result(s), EKG, and as a result, I will discharge patient. Counseling: I had a detailed discussion with the patient and/or guardian regarding the historical points, exam findings, and any diagnostic results supporting the discharge/admit diagnosis, lab results, the need for outpatient follow up, to return to the emergency department if symptoms worsen or persist or if there are any questions or concerns that arise at home. Response to treatment: the patient's symptoms have markedly improved after treatment, and as a result, I will discharge patient. Special discussion: I discussed with the patient/guardian in detail that at this point there is no indication for admission to the hospital. It is understood, however, that if the symptoms persist or worsen the patient needs to return immediately for re-evaluation. ED course: No acute findings and workup. Normal WBC. No ischemia on ECG. Patient reports symptoms began shortly after taking THC edible. Recommend drug cessation. Patient states feels better. Will discharge home with return precautions. Urinalysis negative for UTI.. 04/05 07:37 Order name: CBC with Diff; Complete Time: 08:44 rn 04/05 07:37 Order name: CMP; Complete Time: 08:40 rn 04/05 07:37 Order name: Lipase; Complete Time: 08:40 rn 04/05 07:37 Order name: Urinalysis w/ reflexes; Complete Time: 09:56 rn 04/05 07:37 Order name: Urine Drug Screen; Complete Time: 09:59 rn 04/05 08:41 Order name: CBC Smear Scan; Complete Time: 08:44 EDMS 04/05 07:37 Order name: EKG; Complete Time: 07:38 rn 04/05 07:37 Order name: IV Saline Lock; Complete Time: 07:54 rn 04/05 07:37 Order name: Labs collected and sent; Complete Time: 07:54 rn 04/05 07:37 Order name: EKG - Nurse/Tech; Complete Time: 07:54 rn EC:45 Rate is 108 beats/min. Rhythm is regular. QRS [place] is Normal. [place] interval is normal. rn QRS interval is normal. QT interval is normal. No Q waves. T waves are Normal. No ST changes noted. Clinical impression: NSR w/ Non-specific ST/T Changes. Interpreted by me. Reviewed by me. Administered Medications: 07:54 Drug: Famotidine IVP 20 mg IVP once; dilute with 10 mL 0.9% NaCl; give over 2 minutes ph Route: IVP; Site: left antecubital; 07:59 Follow up: Response: No adverse reaction ph 08:00 Follow up: Response: No adverse reaction ph 07:55 Drug: NS 0.9% IV 1000 ml IV at 1 bolus Per protocol; to be given as a bolus over 60 ph minutes Route: IV; Rate: 1 bolus; Site: left antecubital; 09:00 Follow up: Response: No adverse reaction; IV Status: Completed infusion ph Disposition Summary: 04/05/24 09:59 Discharge Ordered Notes: Location: Home rn Problem: new rn Symptoms: have improved rn Condition: Stable rn Diagnosis - Adverse effects of THC, overdose, uncomplicated rn Followup: rn - With: Private Physician - When: As needed - Reason: Recheck today's complaints, Re-evaluation by your physician Discharge Instructions: - Discharge Summary Sheet rn - Accidental Drug Poisoning, Adult rn Forms: - Medication Reconciliation Form rn - Antibiotic learning operations specialist - Prescription Opioid Use rn - Patient Portal Instructions rn - Leadership Thank You Letter rn Signatures: Dispatcher [employer] Aniceto Fitzgerald MD MD rn Blanchard, Shelby, RN RN ss Susan Rodriges RN RN ph
--- NOTE | 2024-04-05 09:59 | ER ---
Nurse's Notes [facility] Name: Swati Garcia Age: 48 yrs Sex: Female : 1975 Arrival Date: 04/05/2024 Time: 07:34 Bed 8 Private MD: Diagnosis: Adverse effects of THC, overdose, uncomplicated Presentation: 04/05 07:40 Chief complaint: EMS states: Pt reportedly ingested a "pure THC" gummy on Saturday and ss is now c/o N/V. Coronavirus screen: Client denies travel out of the [place] in the last 14 days. Ebola Screen: Patient denies exposure to infectious person. Patient denies travel to an Ebola-affected area in the 21 days before illness onset. Initial Sepsis Screen: Does the patient meet any 2 criteria? No. Patient's initial sepsis screen is negative. Does the patient have a suspected source of infection? No. Patient's initial sepsis screen is negative. Risk Assessment: Do you want to hurt yourself or someone else? Patient reports no desire to harm self or others. Onset of symptoms was April 04, 2024. 07:40 Method Of Arrival: EMS: [facility] ss 07:40 Acuity: POLLY 3 ss Historical: - Allergies: 07:44 Iodine; ss 07:44 NSAIDS; ss 07:44 PENICILLINS; ss 07:44 Phenergan; ss 07:44 Rocephin; ss - PMHx: 07:44 Asthma; Hypertension; Lupus; ss - Immunization history:: Adult Immunizations unknown. - Infectious Disease History:: Denies. - Family history:: not pertinent. - Social history:: Smoking status: unknown Patient uses street drugs, marijuana. - Hospitalizations: : No recent hospitalization is reported. Screenin:57 [facility] ED Fall Risk Assessment (Adult) History of falling in the last 3 months, ph including since admission No falls in past 3 months (0 pts) Confusion or Disorientation No (0 pts) Intoxicated or Sedated Yes (3 pts) Impaired Gait No (0 pts) Mobility Assist Device Used No (0 pt) Altered Elimination No (0 pt) Score/Fall Risk Level 3 or more points = High Risk Oriented to surroundings, Maintained a safe environment, Hourly rounding (assess needs \\T\\ fall precautionary measures) done, Used ambulatory aids as needed (educated on \\T\\ assisted with). Abuse screen: Denies threats or abuse. Denies injuries from another. Nutritional screening: No deficits noted. Tuberculosis screening: No symptoms or risk factors identified. Assessment: 07:57 General: Appears in no apparent distress. Behavior is cooperative, drowsy. Pain: Denies ph pain. Neuro: Level of Consciousness is obeys commands, lethargic, Oriented to person, place, time, situation. Cardiovascular: Capillary refill < 3 seconds in bilateral fingers Patient's skin is warm and dry. Cardiovascular: Rhythm is sinus tachycardia. Respiratory: Airway is patent Respiratory effort is even, unlabored, Respiratory pattern is regular, symmetrical. GI: Reports nausea, vomiting. Derm: Skin is pink, warm \\T\\ dry. Overdose: 07:58 May Suicide Severity Screening: "In the past month, have you wished you were ph or wished you could go to sleep and not wake up?" Patient responds "no." "In the past month, have you actually had any thoughts of killing yourself?" Patient responds "no." "In your lifetime, have you ever done anything, started to do anything, or prepared to do anything to end your life?" Patient responds "no.". Vital Signs: 07:40 Pulse 104; Resp 16; Temp 99.1(O); Pulse Ox 100% on R/A; Weight 90.72 kg; Height 5 ft. 0 ss in. ; Pain 0/10; 07:56 BP 139 / 87; ph 09:09 BP 131 / 82; Pulse 82; Resp 18; Pulse Ox 99% on R/A; ph 10:30 BP 127 / 86; Pulse 78; Resp 18; Temp 97.9; Pulse Ox 98% on R/A; ph 07:40 Body Mass Index 39.06 (90.72 kg, 152.4 cm) ss 07:40 Pain Scale: Adult ss ED Course: 07:36 Patient arrived in ED. eb 07:36 Aniceto Melgoza MD is Attending Physician. rn 07:39 Susan Rodriges, GERARDO is Primary Nurse. ph 07:44 Triage completed. ss 07:44 Arm band placed on right wrist. ss 07:58 Patient has correct armband on for positive identification. Bed in low position. Call ph light in reach. Side rails up X2. Client placed on continuous cardiac and pulse oximetry monitoring. NIBP monitoring applied. cardiac monitor on. Door closed. Noise minimized. Warm blanket given. Pillow given. 07:58 Initial lab(s) drawn, by ED staff, sent to lab. EKG done, by ED staff, reviewed by debbie Melgoza MD. Inserted saline lock: 20 gauge in left antecubital area, using aseptic technique. Blood collected. Flushed with 10 mL NS. 10:58 No provider procedures requiring assistance completed. IV discontinued, intact, ph bleeding controlled, No redness/swelling at site. Pressure dressing applied. Administered Medications: 07:54 Drug: Famotidine IVP 20 mg IVP once; dilute with 10 mL 0.9% NaCl; give over 2 minutes ph Route: IVP; Site: left antecubital; :59 Follow up: Response: No adverse reaction ph 08:00 Follow up: Response: No adverse reaction ph 07:55 Drug: NS 0.9% IV 1000 ml IV at 1 bolus Per protocol; to be given as a bolus over 60 ph minutes Route: IV; Rate: 1 bolus; Site: left antecubital; 09:00 Follow up: Response: No adverse reaction; IV Status: Completed infusion ph Medication: 07:58 VIS not applicable for this client. ph Outcome: :59 Discharge ordered by . rn 10:58 Patient left the ED. ph 10:58 Discharged to home ph 10:58 Condition: good 10:58 Discharge instructions given to patient, Instructed on discharge instructions, follow up and referral plans. Demonstrated understanding of instructions, follow-up care, Signatures: Aniceto Melgoza MD MD rn Blanchard, Shelby, RN RN Susan Rodriges RN RN Brianna Toussaint
[2024-04-05 11:17] VITALS: TEMP 99.1
[2024-04-05 11:23] VITALS: BP 131/82; O2SAT 99
--- NOTE | 2024-04-07 12:48 | EKG ---
Test Date: 2024-04-05 Test Time: 07:48:48 Nutrition Consultant: PH MEASUREMENT RESULTS: Intervals: Rate: 108 [place]: 182 QRSD: 80 QT: 356 QTc: 477 [place]: P: 59 [place]: 182 QRS: 79 T: 69 INTERPRETIVE STATEMENTS: Sinus tachycardia Low voltage QRS Cannot rule out Anterior infarct, age undetermined Abnormal ECG Compared to ECG 12/16/2023 19:00:51 Prolonged QT interval no longer present Myocardial infarct finding still present Electronically Signed On 04-07-24 12:43:32 [employer]ATE P[employer]ER by Mika Orourke
== END 2024-04-05 10:58 | disposition home or self-care (01) ==
LOC: ER 07:34
DX: T40.711A Poisoning by cannabis, accidental (unintentional), initial encounter (principal); T40.715A Adverse effect of cannabis, initial encounter
CPT/HCPCS: 96361; 93005; 85025; 81001; 36415; 83690; 80053; 80307; 96374; 99285; J7030